=== PATIENT | male | born 1940 | race Caucasian/White ===

== ENCOUNTER 2023-11-18 08:44 | Emergency (ER) | payer MEDICARE, OTHER ==
[~2023-11-18] VITALS: Ht 180.3 cm; Wt 99.0 kg
[2023-11-18] MEDS ORDERED: ELIQUIS5 MG PO (09:01)
[2023-11-18] MEDS ORDERED: PACERONE200 MG PO (09:01)
[2023-11-18] MEDS ORDERED: HYDROCODON-ACE1 EA10 PO (09:02)
[2023-11-18] MEDS ORDERED: METFORMIN HCL500 MG PO (09:02)
[2023-11-18] MEDS ORDERED: MAGNESIUM CITRATE 300 ML BTL PO ONE (09:15)
[2023-11-18 09:19] VITALS: BP 155/86
== END 2023-11-18 09:19 | disposition home or self-care (01) ==
LOC: ED 08:44
DX: K56.41 Fecal impaction (principal)
CPT/HCPCS: 99283